=== PATIENT | female | born 1990 | race Caucasian/White ===

== ENCOUNTER 2016-12-01 10:00 | Day surgery (SDC) | payer OTHER ==
[2016-12-01] MEDS ORDERED: ACETAMINOPHEN 1,000 MG/100 ML 100 ML IV ONE (10:05)
[2016-12-01] MEDS ORDERED: ceFAZolin 2 GM/50 ML 50 ML IV ONE (10:05)
[2016-12-01] MEDS ORDERED: LACTATED RINGERS 1,000 ML IV ONE (10:50)
[2016-12-01] MEDS ORDERED: fentaNYL 100 MCG/2 ML VIAL IVP ONE (12:00)
[2016-12-01] MEDS ORDERED: MIDAZOLAM 2 MG/2 ML VIAL IVP ONE (12:00)
[2016-12-01] MEDS ORDERED: LIDOCAINE-MPF 2% 5 ML VIAL IM ONE (12:00)
[2016-12-01] MEDS ORDERED: PROPOFOL 200 MG/20 ML VIAL IVP ONE (12:00)
[2016-12-01] MEDS ORDERED: BUPIVACAINE 0.5% PF 30 ML VIAL SUBQ ONE ×2 (12:27)
[2016-12-01] MEDS ORDERED: LIDOCAINE 1% 50 ML MDV SUBQ ONE (12:27)
== END 2016-12-01 10:01 | disposition home or self-care (01) ==
PROC: 0LB80ZZ Excision of Left Hand Tendon, Open Approach (ICD-10-PCS; principal; 2016-12-01 11:20)
DX: M67.48 Ganglion, other site (principal); J45.20 Mild intermittent asthma, uncomplicated
CPT/HCPCS: 26160; 81025; J0131; J0690; J7120